=== PATIENT | female | born 2000 | race Two or more races ===

== ENCOUNTER 2023-12-15 12:07 | Emergency (ER) | payer MEDICAID, OTHER ==
[~2023-12-15] VITALS: Ht 160 cm; Wt 77.2 kg
[2023-12-15 13:16] LABS: Urine Bacteria MOD /hpf (None Seen); Urine Blood 2+ /uL (Negative); Urine Budding Yeast FEW /hpf (None Seen); Urine Clarity Turbid (Clear); Urine Color Light-Yellow (Yellow); Urine Mucus FEW (None Seen); Urine Protein, UAD Negative (Negative); Urine Specific Gravity 1.014 (1.001-1.035); Urine Urobilinogen Normal (Negative); Urine WBC 9 /hpf (0 - 5)
[2023-12-15] MEDS ORDERED: NITR-87 PO (13:36)
[2023-12-15 14:01] VITALS: BP 120/79; PULSE 63; RESP 18; TEMP 98.2; O2SAT 96
== END 2023-12-15 14:07 | disposition home or self-care (01) ==
LOC: ER 12:07
DX: O20.0 Threatened abortion (principal); R10.2 Pelvic and perineal pain; O23.41 Unspecified infection of urinary tract in pregnancy, first trimester; N39.0 Urinary tract infection, site not specified; Z3A.13 13 weeks gestation of pregnancy
CPT/HCPCS: 36415; 76801; 81001; 84702

== ENCOUNTER 2023-12-20 18:09 | Emergency (ER) | payer MEDICAID ==
[~2023-12-20] VITALS: Ht 160 cm; Wt 76.6 kg
[~2023-12-20 18:09] MED LIST: NITR-87 PO
[2023-12-20 19:43] LABS: Basophils # (auto) 0 10 ^3/uL (0-0.2); Basophils % (auto) 0.2 % (0.0-2.0); Eosinophils # (auto) 0.2 10 ^3/uL (0-0.8); Eosinophils % (auto) 1.8 % (0.0-7.0); Hematocrit 41.4 % (36.0-46.0); Hemoglobin 14.1 g/dL (12.2-16.2); Lymphocytes # (auto) 2.7 10 ^3/uL (0.4-5.4); Lymphocytes % (auto) 30.6 % (10.0-50.0); Mean Corpuscular Hemoglobin 32.3 pg (28.0-32.0); Mean Corpuscular Hgb Conc. 34.1 g/dL (32.0-36.0); Mean Corpuscular Volume 94.7 fL (80.0-100.0); Monocytes # (auto) 0.5 10 ^3/uL (0-1.3); Monocytes % (auto) 6.1 % (0.0-12.0); Neutrophils # (auto) 5.4 10 ^3/uL (1.6-8.6); Neutrophils % (auto) 61.3 % (37.0-80.0); Platelet Count (auto) 171 10^3/uL (140-450); Red Blood Cells 4.38 10^6/uL (4.0-5.20); Red Cell Distribution Width 12.9 % (11.8-14.3); White Blood Cell 8.7 10^3/uL (4.4-10.8)
[2023-12-20 19:56] LABS: Urine Bacteria None Seen /hpf (None Seen)
[2023-12-20 19:58] LABS: Chloride 108 mmol/L (98-107); Potassium 3.6 mmol/L (3.5-5.1); Sodium 138 mmol/L (136-145)
[2023-12-20 19:59] LABS: Anion Gap 9 (5-15); Carbon Dioxide 21 mmol/L (20-30)
[2023-12-20 20:04] LABS: BUN/Creatinine Ratio 12.3 (10.0-20.0); Blood Urea Nitrogen 7 mg/dL (9-23); Glucose 84 mg/dL (74-106)
[2023-12-20] MEDS: ACETAMINOPHEN 500 MG TAB PO ONE (20:05)
[2023-12-20] MEDS: SODIUM CHLORIDE 0.9% 1,000 ML IV ONE (20:05)
[2023-12-20 20:12] VITALS: BP 123/78; PULSE 61; RESP 17; TEMP 98
[2023-12-20 20:26] LABS: Urine Blood Negative /uL (Negative); Urine Clarity Turbid (Clear); Urine Color Light-Yellow (Yellow); Urine Protein, UAD Negative (Negative); Urine Specific Gravity 1.012 (1.001-1.035); Urine Urobilinogen Normal (Negative); Urine WBC 3 /hpf (0 - 5)
[2023-12-20] MEDS: cefTRIAXone 2GM/50ML D5W 50 ML IV ONE (20:26)
[2023-12-20] MEDS: METOCLOPRAMIDE HCL 5MG/ml INJ 2ml VIAL IV ONE (20:26)
[2023-12-20 20:40] VITALS: O2SAT 99
[2023-12-20] MEDS ORDERED: ACET-1304 PO (20:54)
[2023-12-20] MEDS ORDERED: METO-281 PO (20:54)
[2023-12-20] MEDS ORDERED: CEPH500T PO (20:54)
[2023-12-20] MEDS: cefTRIAXone 1GM/50ML D5W 50 ML IV ONE ×2 (22:00)
== END 2023-12-20 22:25 | disposition home or self-care (01) ==
LOC: ER 18:09
DX: O23.41 Unspecified infection of urinary tract in pregnancy, first trimester (principal); N39.0 Urinary tract infection, site not specified; Z3A.09 9 weeks gestation of pregnancy
CPT/HCPCS: 36415; 76775; 76801; 80048; 81001; 85025; 87040; 87086; 96361; 96365; 96375; 99285; J0696; J2765; J7030

== ENCOUNTER 2024-06-04 20:41 | Observation (INO) | payer MEDICAID ==
[~2024-06-04] VITALS: Ht 160 cm; Wt 74.8 kg
[~2024-06-04 20:41] MED LIST changes: +ACET-1304 PO; +CEPH500T PO; +METO-281 PO
[2024-06-04] MEDS ORDERED: LACTATED RINGER'S 1,000 ML IV SCH (21:45)
[2024-06-04] MEDS: TERBUTALINE SULFATE 1 MG/ML 1ML VIAL SC SCH (22:10)
[2024-06-04] MEDS: LACTATED RINGER'S 1,000 ML IV ONE (23:07)
--- NOTE | 2024-06-04 23:16 | DVH ---
LIMITED SURVEY CLINICAL HISTORY: LABOR COMPARISON: None TECHNIQUE: Grayscale imaging of the gravid pelvis is performed FINDINGS: Fetus is in cephalic position. Cervix can not be imaged due to shadowing from the head. Placenta is fundal. heart rate is 139 beats per minute Amniotic fluid index is 13.35 cm with deepest pocket = 5.1 cm. Cervical neck measures 3.5 cm in length with no evidence for funneling and no evidence for placenta p revia. IMPRESSION: 1. Limited survey of the gravid uterus with no evidence placenta previa. Fetus is in cephalic positio n 2. The placenta is fundal and unremarkable. heart rate is normal. Amniotic fluid index is 13.4 cm which is normal.
[2024-06-04] MEDS: NIFEdipine 10 MG CAP PO ONE (23:37)
[2024-06-05] MEDS ORDERED: NIFE10CA52 PO (00:05)
--- NOTE | 2024-06-05 15:47 | DVHDS2 ---
Physician Discharge Progress N Final Diagnosis: cramping Operations or Procedures: Operations or Procedures nst,sono Condition on Discharge: Good Disposition: Home Discharge Instructions: Diet: Regular Activity: Light activity Medications: na Follow Up Care: Specialist: 2d Discharge Statement: "Patient was advised to return to the ER or call 911 if any headaches, dizziness, shortness of breath, chest pain, abdominal pain, bleeding, fevers, or worsening of medical condition. Patient was counseled about treatment plan, medications, possible side effects, patientverbalized understanding. All questions were answered to the best of my ability. This discharge took greater then 30 minutes in planning, reviewing documentation, counseling the patient, and discussing with other team members." Visit Coding OBGYN Date of Service: Jun 04, 2024 Billing Provider: CLAUDIO PARRISH DO ALMOND BLANCHER HAND Common Visit Codes: 62888-RSL/OBS SAME DATE (MOD) ALMOND BLANCHER HAND Procedure Codes: 53459-31- NON-STRESS TEST CLAUDIO PARRISH DO Jun 05, 2024 15:47
== END 2024-06-05 00:30 | disposition home or self-care (01) ==
LOC: LDRP 20:41
PROVIDERS: ADMIT Obstetrics & Gynecology; ATTEND Obstetrics & Gynecology
DX: O60.00 Preterm labor without delivery, unspecified trimester (principal); O62.9 Abnormality of forces of labor, unspecified; Z3A.33 33 weeks gestation of pregnancy; Z79.899 Other long term (current) drug therapy; Z98.890 Other specified postprocedural states
CPT/HCPCS: 59025; 76815; 76817; 81002; 94760; 96360; 96361; 96372; G0378; J3105

== ENCOUNTER 2024-07-09 10:35 | Observation (INO) | payer MEDICAID ==
[~2024-07-09 10:35] MED LIST changes: +NIFE10CA52 PO
[2024-07-09 11:11] LABS: Basophils # (auto) 0 10 ^3/uL (0-0.2); Basophils % (auto) 0.5 % (0.0-2.0); Eosinophils # (auto) 0.1 10 ^3/uL (0-0.8); Eosinophils % (auto) 1.4 % (0.0-7.0); Hematocrit 38.8 % (36.0-46.0); Hemoglobin 13.1 g/dL (12.2-16.2); Lymphocytes # (auto) 2.1 10 ^3/uL (0.4-5.4); Mean Corpuscular Hemoglobin 31.6 pg (28.0-32.0); Mean Corpuscular Hgb Conc. 33.8 g/dL (32.0-36.0); Mean Corpuscular Volume 93.4 fL (80.0-100.0); Monocytes # (auto) 0.4 10 ^3/uL (0-1.3); Monocytes % (auto) 5.9 % (0.0-12.0); Neutrophils # (auto) 4.6 10 ^3/uL (1.6-8.6); Neutrophils % (auto) 63.2 % (37.0-80.0); Nucleated Red Blood Cells % 0.1 %; Platelet Count (auto) 128 10^3/uL (140-450); Red Blood Cells 4.15 10^6/uL (4.0-5.20); White Blood Cell 7.3 10^3/uL (4.4-10.8)
[2024-07-09 11:15] LABS: INR 0.86 (0.9-1.15); Partial Thromboplastin Time 25.1 SEC (24.5-34.5); Prothrombin Time 9.3 sec (9.3-11.8)
[2024-07-09 11:33] LABS: Alanine Aminotransferase 29 U/L (7-40); Anion Gap 9 (5-15); Calcium 10.1 mg/dL (8.7-10.4); Carbon Dioxide 22 mmol/L (20-31); Glucose 92 mg/dL (74-106); Potassium 4.1 mmol/L (3.5-5.1); Sodium 139 mmol/L (136-145); Total Protein 6.3 g/dL (5.7-8.2)
[2024-07-09 11:34] LABS: Aspartate Aminotransferase 25 U/L (13-40); Bilirubin, Total 0.6 mg/dL (0.2-1.0)
[2024-07-09 11:38] LABS: Alkaline Phosphatase 279 U/L (46-116); Blood Urea Nitrogen 9 mg/dL (9-23); Chloride 108 mmol/L (98-107)
[2024-07-09 11:49] LABS: Uric Acid 6.6 mg/dL (3.1-7.8)
[2024-07-09 12:02] LABS: Protein, Urine 20.2 mg/dL (1-14)
[2024-07-09 12:03] LABS: Urine Bacteria FEW /hpf (None Seen); Urine Blood TRACE /uL (Negative); Urine Clarity Turbid (Clear); Urine Color Light-Orange (Yellow); Urine Mucus FEW (None Seen); Urine Protein, UAD TRACE (Negative); Urine Specific Gravity 1.014 (1.001-1.035); Urine Squamous Epithelial Cell MOD /hpf (<5); Urine Urobilinogen Normal (Negative); Urine WBC 25 /HPF (0-5)
--- NOTE | 2024-07-09 12:03 | DVH ---
Procedure: US BIOPHYSICAL PROFILE 07/09/2024 11:00 AM Indication: PIH Comparison: None Technique: Sonogram of gravid uterus utilizing grayscale and color techniques. FINDINGS: Single living intrauterine gestation. Presentation: Cephalic Placenta: Fundal, no previa heart rate: 138 bpm ADILENE: 21.3 cm, DVP: 6.9 cm Maternal cervix: Not visualized Biophysical Profile: breathing score: 2 movement score: 2 tone: 2 Quantitative ADILENE score: 2 Total score: 8/8 IMPRESSION: 1. Single living as above. 2. Biophysical profile score: 8/8.
[2024-07-09 12:04] LABS: Creatinine, Urine 88.72 mg/dL (30.0-125.0); Urine Protein/Creatinine Ratio 0.23
--- NOTE | 2024-07-09 21:43 | DVHDS2 ---
Physician Discharge Progress N Final Diagnosis: rule out PIH Operations or Procedures: Operations or Procedures 23yo IUP@38.4wks, +FM, Denies LOF/VB/JORDAN/vision changes/RUQ pain. VSS, normotensive NST reactive FKC/Labor/PreE precautions reviewed f/u on saturday07/11/24 with [address] Johnson consulted, agrees with POC. Laboratory Tests Test 07/09/24 09:30 07/09/24 10:45 Range/Units Urine Color Light-orange Yellow Urine Clarity Turbid H Clear Urine pH 6.0 5.0-9.0 Urine Specific [place] 1.014 1.001-1.035 Urine Protein Trace H Negative Urine Ketones Negative Negative Urine Blood Trace H Negative /uL Urine Nitrite Negative Negative Urine Bilirubin Negative Negative Urine Urobilinogen Normal Negative mg/dL Urine Leukocyte Esterase 3+ Negative /uL Urine RBC 47 0 - 4 /hpf Urine Microscopic WBC 25 H 0-5 /HPF Urine Squamous Epithelial Cells Mod <5 /hpf Urine Bacteria Few H None Seen /hpf Urine Mucus Few None Seen Urine Creatinine 88.72 30.0-125.0 mg/dL Urine Protein/Creatinine Ratio 0.23 Urine Glucose Normal Normal mg/dL Urine Total Protein 20.2 H 1-14 mg/dL White Blood Count 7.3 4.4-10.8 10^3/uL Red Blood Count 4.15 4.0-5.20 10^6/uL Hemoglobin 13.1 12.2-16.2 g/dL Hematocrit 38.8 36.0-46.0 % Mean Corpuscular Volume 93.4 80.0-100.0 fL Mean Corpuscular Hemoglobin 31.6 28.0-32.0 pg Mean Corpuscular Hemoglobin Concent 33.8 32.0-36.0 g/dL Red Cell Distribution Width 14.0 11.8-14.3 % Platelet Count 128 L 140-450 10^3/uL Mean Platelet Volume 10.3 6.9-10.8 fL Neutrophils (%) (Auto) 63.2 37.0-80.0 % Lymphocytes (%) (Auto) 29.0 10.0-50.0 % Monocytes (%) (Auto) 5.9 0.0-12.0 % Eosinophils (%) (Auto) 1.4 0.0-7.0 % Basophils (%) (Auto) 0.5 0.0-2.0 % Neutrophils # (Auto) 4.6 1.6-8.6 10 ^3/uL Lymphocytes # (Auto) 2.1 0.4-5.4 10 ^3/uL Monocytes # (Auto) 0.4 0-1.3 10 ^3/uL Eosinophils # (Auto) 0.1 0-0.8 10 ^3/uL Basophils # (Auto) 0 0-0.2 10 ^3/uL Nucleated Red Blood Cells 0.1 % Prothrombin Time 9.3 9.3-11.8 sec Prothrombin Time INR 0.86 L 0.9-1.15 Activated Partial Thromboplast Time 25.1 24.5-34.5 SEC Sodium Level 139 136-145 mmol/L Potassium Level 4.1 3.5-5.1 mmol/L Chloride Level 108 H 98-107 mmol/L Carbon Dioxide Level 22 20-31 mmol/L Anion Gap 9 5-15 Blood Urea Nitrogen 9 9-23 mg/dL Creatinine 0.69 0.550-1.02 mg/dL Glomerular Filtration Rate Calc 125 >90 mL/min BUN/Creatinine Ratio 13.0 10.0-20.0 Serum Glucose 92 74-106 mg/dL Uric Acid 6.6 3.1-7.8 mg/dL Calcium Level 10.1 8.7-10.4 mg/dL Total Bilirubin 0.6 0.2-1.0 mg/dL Aspartate Amino Transferase (AST) 25 13-40 U/L Alanine Aminotransferase (ALT) 29 7-40 U/L Alkaline Phosphatase 279 H 46-116 U/L Total Protein 6.3 5.7-8.2 g/dL Albumin 4.0 3.2-4.8 g/dL Other Interventions Other Interventions [address] [address] Ph: [phone] DIAGNOSTIC IMAGING Diagnostic Imaging Report : [id number] Signed PATIENT: TOM MCCORMICKCT: [id number] UNIT: [id number] : 2000 LOC: [facility] ROOM / BED: TRIAGE2 / A AGE / SEX: 23 / F ADM STATUS: ADM IN SERVICE 1038 ORDERING PHYSICIAN: YOLANDA NÚÑEZ CNM PROCEDURE(s): BPP - BIOPHYSICAL PROFILE REASON: PIH ORDER NUMBER(s): [id number], ACCESSION NUMBER(s): [id number] Procedure: US BIOPHYSICAL PROFILE 07/09/2024 11:00 AM Indication: PIH Comparison: None Technique: Sonogram of gravid uterus utilizing grayscale and color techniques. FINDINGS: Single living intrauterine gestation. Presentation: Cephalic Placenta: Fundal, no previa heart rate: 138 bpm ADILENE: 21.3 cm, DVP: 6.9 cm Maternal cervix: Not visualized Biophysical Profile: breathing score: 2 movement score: 2 tone: 2 Quantitative ADILENE score: 2 Total score: 8/8 IMPRESSION: 1. Single living as above. 2. Biophysical profile score: 8/8. ATED BY: LONA REY MD DICTATED DATE/TIME: 07/09/24 1200 SIGNED BY: LONA REY MD SIGNED DATE/TIME: 07/09/24 1200 CC: Condition on Discharge: Stable Disposition: Home Discharge Instructions: Diet: Regular Activity: No Restrictions, As Tolerated Medications: see med list Follow Up Care: Specialist: f/u on saturday07/11/24 with 24 hour urine collection Discharge Statement: "Patient was advised to return to the ER or call 911 if any headaches, dizziness, shortness of breath, chest pain, abdominal pain, bleeding, fevers, or worsening of medical condition. Patient was counseled about treatment plan, medications, possible side effects, patientverbalized understanding. All questions were answered to the best of my ability. This discharge took greater then 30 minutes in planning, reviewing documentation, counseling the patient, and discussing with other team members." Visit Coding OBGYN Date of Service: Jul 09, 2024 Billing Provider: YOLANDA NÚÑEZ CNM PUBLIC RELATIONS ANALYST Common Visit Codes: [id number] OBS CARE (HIGH) PUBLIC RELATIONS ANALYST Procedure Codes: 17493-14- NON-STRESS TEST YOLANDA NÚÑEZ CNM Jul 09, 2024 21:43
== END 2024-07-09 12:28 | disposition home or self-care (01) ==
LOC: LDRP 10:35
PROVIDERS: ADMIT Obstetrics & Gynecology; ATTEND Obstetrics & Gynecology
DX: Z36.89 Encounter for other specified antenatal screening (principal); Z79.899 Other long term (current) drug therapy; Z86.2 Personal history of diseases of the blood and blood-forming organs and certain disorders involving the immune mechanism; Z3A.38 38 weeks gestation of pregnancy
CPT/HCPCS: 36415; 59025; 76819; 80053; 81001; 81002; 82570; 84156; 84550; 85025; 85610; 85730; 94760; G0378; 76818

== ENCOUNTER 2024-07-10 23:20 | Observation (INO) | payer MEDICAID ==
[~2024-07-10] VITALS: Ht 160 cm; Wt 91.6 kg
--- NOTE | 2024-07-11 00:29 | DVHDS2 ---
Physician Discharge Progress N Final Diagnosis: spotting/bloody show [place] varela contractions Operations or Procedures: Operations or Procedures S: 23yo IUP@38.4wks presents to OB triage with c/o vaginal bleeding, has a picture on her phone (looks like pink/red spotting with mucus). Reports having intercourse 2 days ago. +FM, Denies LOF/VB/JORDAN/vision changes/RUQ pain. PNC at [facility], currently being ruled out for PIH, [facility] to return with 24 hour urine collection. Pt has urine jug with her on ice in triage today. O: VSS, normotensive NST reactive UCs presents, but pt does not feel them A: 23yo IUP@38.4wks Spotting/bloody show [place] varela contractions P: D/C home FKC/Labor/PreE precautions reviewed f/u on saturday07/11/24 morning with [address] Johnson consulted, agrees with POC. Condition on Discharge: Stable Disposition: Home Discharge Instructions: Diet: Regular Activity: No Restrictions, As Tolerated Medications: see med list Follow Up Care: Specialist: f/u on saturday07/11/24 morning with 24 hour urine collection Discharge Statement: "Patient was advised to return to the ER or call 911 if any headaches, dizziness, shortness of breath, chest pain, abdominal pain, bleeding, fevers, or worsening of medical condition. Patient was counseled about treatment plan, medications, possible side effects, patientverbalized understanding. All questions were answered to the best of my ability. This discharge took greater then 30 minutes in planning, reviewing documentation, counseling the patient, and discussing with other team members." Visit Coding OBGYN Date of Service: Jul 11, 2024 Billing Provider: YOLANDA NÚÑEZ CNM GRAVEL WHEELER Common Visit Codes: [id number] OBS CARE (HIGH) YOLANDA NÚÑEZ CNM Jul 11, 2024 00:29
== END 2024-07-11 00:33 | disposition home or self-care (01) ==
LOC: LDRP 23:20
PROVIDERS: ADMIT Obstetrics & Gynecology; ATTEND Obstetrics & Gynecology
DX: O26.853 Spotting complicating pregnancy, third trimester (principal); O62.9 Abnormality of forces of labor, unspecified; Z98.890 Other specified postprocedural states; Z79.899 Other long term (current) drug therapy; Z3A.38 38 weeks gestation of pregnancy
CPT/HCPCS: 81002; 94760; G0378

== ENCOUNTER 2024-07-11 09:12 | Inpatient (IN) | payer MEDICAID ==
[~2024-07-11] VITALS: Ht 157.5 cm; Wt 91.6 kg
[2024-07-11 10:15] LABS: Urine Bacteria None Seen /hpf (None Seen)
--- NOTE | 2024-07-11 10:34 | DVH ---
CLINICAL HISTORY: -induced hypertension. COMPARISON: US BIOPHYSICAL PROFILE on DOS: 07/09/24 TECHNIQUE: biophysical profile was performed. Transabdominal sonographic images of the fetus we re obtained. FINDINGS: The fetus is in cephalic position. heart rate measures 136 BPM. Amniotic fluid index measures 15.6 cm. The placenta is i in position. BPP profile is an overall score of 8/8, with 2/2 points for breathing, with at least one episode of breathing over a 30 second duration during a 30 minute observation, 2/2 points for m ovements, with 3 or more discrete body or limb movements, 2/2 points for tone, with one or more episodes of extremity extension with return to flexion, or opening and closing of hand, and 2/ 2 points for amniotic fluid, with at least 1 pocket of amniotic fluid that measures 2 cm in 2 perpend icular planes. IMPRESSION: BPP score of 8/8.
[2024-07-11 10:35] LABS: Urine Blood 1+ /uL (Negative); Urine Clarity Turbid (Clear); Urine Color Light-Yellow (Yellow); Urine Mucus FEW (None Seen); Urine Protein, UAD Negative (Negative); Urine Specific Gravity 1.007 (1.001-1.035); Urine Squamous Epithelial Cell MOD /hpf (<5); Urine Urobilinogen Normal (Negative); Urine WBC 14 /HPF (0-5); Urine pH 5.5 (5.0-9.0)
[2024-07-11 10:47] LABS: Protein, Urine 8.5 mg/dL (1-14)
[2024-07-11 10:50] LABS: Urine Protein/Creatinine Ratio 0.12
[2024-07-11 10:53] LABS: Fern Testing Negative
[2024-07-11 11:01] LABS: Protein, Urine < 6.0 mg/dL (1-14)
[2024-07-11 11:13] LABS: 24 Hr. Total Protein, Urine 229.5 mg/24 Hr (<149.1)
[2024-07-11 12:28] LABS: Basophils # (auto) 0 10 ^3/uL (0-0.2); Basophils % (auto) 0.3 % (0.0-2.0); Eosinophils # (auto) 0.1 10 ^3/uL (0-0.8); Eosinophils % (auto) 2.1 % (0.0-7.0); Hemoglobin 12.6 g/dL (12.2-16.2); Lymphocytes # (auto) 2.1 10 ^3/uL (0.4-5.4); Mean Corpuscular Hemoglobin 32.4 pg (28.0-32.0); Mean Corpuscular Hgb Conc. 35.1 g/dL (32.0-36.0); Mean Corpuscular Volume 92.2 fL (80.0-100.0); Monocytes # (auto) 0.4 10 ^3/uL (0-1.3); Monocytes % (auto) 6.3 % (0.0-12.0); Neutrophils # (auto) 4.2 10 ^3/uL (1.6-8.6); Neutrophils % (auto) 61.3 % (37.0-80.0); Nucleated Red Blood Cells % 0.1 %; Platelet Count (auto) 114 10^3/uL (140-450); Red Blood Cells 3.91 10^6/uL (4.0-5.20); Red Cell Distribution Width 13.9 % (11.8-14.3); White Blood Cell 6.9 10^3/uL (4.4-10.8)
[2024-07-11 12:49] LABS: INR 0.91 (0.9-1.15); Partial Thromboplastin Time 25.4 SEC (24.5-34.5); Prothrombin Time 9.7 sec (9.3-11.8)
[2024-07-11 12:51] LABS: Alanine Aminotransferase 33 U/L (7-40); Albumin 3.9 g/dL (3.2-4.8); Anion Gap 10 (5-15); Aspartate Aminotransferase 25 U/L (13-40); BUN/Creatinine Ratio 10.3 (10.0-20.0); Bilirubin, Total 0.5 mg/dL (0.2-1.0); Calcium 10.4 mg/dL (8.7-10.4); Carbon Dioxide 21 mmol/L (20-31); Potassium 3.7 mmol/L (3.5-5.1); Sodium 140 mmol/L (136-145); Total Protein 6.4 g/dL (5.7-8.2); Uric Acid 6.8 mg/dL (3.1-7.8)
[2024-07-11 13:13] LABS: Alkaline Phosphatase 256 U/L (46-116); Blood Urea Nitrogen 7 mg/dL (9-23); Chloride 109 mmol/L (98-107); Glucose 107 mg/dL (74-106)
[2024-07-11] MEDS ORDERED: LIDOCAINE 2%HCL (LOCAL ANESTH.) INJ 20ML MDV IJ PRN (13:45)
[2024-07-11] MEDS ORDERED: NALBUPHINE HCL 10 MG/1ml INJECTION IV PRN (13:45)
--- NOTE | 2024-07-11 13:54 | DVHHP ---
ADMIT DATE: 07/11/2024 CHIEF COMPLAINT: Uterine contractions, elevated blood pressure. HISTORY OF PRESENT ILLNESS: The patient is a 23-year-old 1, para 0 with EDC of 07/19/2024, estimated gestational age of 38+ weeks, admitted for augmentation of labor. The patient was 1 cm. She progressed to 3 cm, 70%, -1. Her blood pressures were also noted to be elevated. Subsequently, a decision was made to proceed with augmentation of labor. PAST MEDICAL HISTORY: None. PAST SURGICAL HISTORY: None. SOCIAL HISTORY: None. FAMILY HISTORY: None. OBSTETRIC AND GYNECOLOGIC HISTORY: Primigravid. ALLERGIES: No known drug allergies. REVIEW OF SYSTEMS: Consistent with HPI. PHYSICAL EXAMINATION: VITAL SIGNS: Stable, afebrile. HEENT: Within normal limits. CARDIOVASCULAR: Regular rate and rhythm. LUNGS: Clear to auscultation. BREASTS: Symmetrical. No masses. ABDOMEN: Gravid. Positive heart. PELVIC: 3, 70%, -1. EXTREMITIES: No clubbing, cyanosis or edema. IMPRESSION: * Augmentation of labor. * Gestational hypertension. PLAN: We will give the patient epidural and start her on Pitocin. Informed consent obtained. Lona Johnson DO MZ/ARV TID: [id number] RECEIPT: [id number]
[2024-07-11] MEDS: PENICILLIN G POT 5MIL/D5 50ML 50 ML IV ONE (15:16)
[2024-07-11] MEDS: LACTATED RINGER'S 1,000 ML IV SCH (15:27)
[2024-07-11] MEDS: PHISODERM TOP SOLN 240ML BTL TOP PRN (15:43)
[2024-07-11] MEDS: LABETALOL HCL 200 MG TAB PO SCH (15:43)
[2024-07-11] MEDS: DERMOPLAST 60ML BOTTLE TOP PRN (15:43)
[2024-07-11] MEDS: WITCH HAZEL-GLYCERIN PAD TOP PRN (15:44)
[2024-07-11 16:02] LABS: Amphetamine Screen, Urine Neg (NEGATIVE); Barbiturate Scree,Urine Neg (NEGATIVE); Benzodiazephine Screen, Urine Neg (NEGATIVE); Cannabinoid Screen, Urine Neg (NEGATIVE); Cocaine Screen, Urine Neg (NEGATIVE); Opiate Scree,Urine Neg (NEGATIVE); Phencyclidine Screen, Urine Neg (NEGATIVE)
[2024-07-11] MEDS: LACT. RINGERS/OXYTOCIN 20UNITS 1,000 ML IV SCH (16:56)
[2024-07-11] MEDS ORDERED: ceFAZolin 2 GM/D5W50ml 50 ML IV ONE (18:15)
--- NOTE | 2024-07-11 18:36 | DVHPN2 ---
Chief Complaints Patient reports: No new complaints Nursing reports: No new complaints Objective Vitals Vital Signs Date Time Temp Pulse Resp B/P (MAP) Pulse Ox O2 Delivery O2 Flow Rate FiO2 07/11/24 16:43 91 140/81 Medications Current Medications Medications (Trade) Dose Ordered Sig/Lilly Route PRN Reason Start Time Stop Time Status Last Admin Benzocaine (Dermoplast) 1 applic PRN PRN TOP PERINEAL AREA DISCOMFORT 07/11/24 13:45 07/11/24 15:43 Hydralazine HCl (Apresoline Injection) 5 mg Q20MP PRN IV SBP>160 or DBP>105 07/11/24 18:00 Labetalol HCl (Normodyne Tablet) 200 mg Q12H PO 07/12/24 03:30 Lactated Ringer's 1,000 ml @ 125 mls/hr Q8H IV 07/11/24 13:45 07/11/24 15:27 Lidocaine HCl (Xylocaine) 20 ml ONCE PRN IJ PERINEAL AREA DISCOMFORT 07/11/24 13:45 Nalbuphine HCl (Nubain) 10 mg Q4HP PRN IV MODERATE PAIN (4-6 PAIN SCALE) 07/11/24 13:45 Ondansetron HCl (Zofran) 4 mg Q4HPRN PRN IV NAUSEA / VOMITING 07/11/24 16:45 Oxytocin 1,000 ml @ 6 ml/hr Q24H IV 07/11/24 15:45 07/11/24 16:56 Penicillin G Potassium 5852606 units/Dextrose 50 ml @ 100 mls/hr Q4H IV 07/11/24 19:00 Sodium Lauryl Sulfate (Phisoderm) 240 ml PRN PRN TOP PERINEAL AREA DISCOMFORT 07/11/24 13:45 07/11/24 15:43 Witch Dawn (Tucks) 1 pad PRN PRN TOP PERINEAL AREA DISCOMFORT 07/11/24 13:45 07/11/24 15:44 Others ve- exam unchanged Studies Laboratory Tests 07/11/24 12:06 Test 07/11/24 12:06 Range/Units Serum Glucose 107 H 74-106 mg/dL Ass/Plan Assessment iol Plan pt needs to get epidural supportive care start pitocin Visit Coding OBGYN Date of Service: Jul 11, 2024 Billing Provider: CLAUDIO PARRISH DO QUILL WORKER Common Visit Codes: [id number] INP/OBS CARE(HIGH) QUILL WORKER Procedure Codes: 35675-11- NON-STRESS TEST CLAUDIO PARRISH DO Jul 11, 2024 18:36
[2024-07-11] MEDS: PENICILLIN G POTASSIUM 2,500,000 UNITS in D5W 5% 50 ML IV SCH (19:09)
[2024-07-11] MEDS ORDERED: ePHEDrine SULFATE 50 MG/ML AMP IV ONE (19:45)
[2024-07-11] MEDS ORDERED: NALOXONE HCL 0.4 MG/ML VIAL IV ONE (19:45)
--- NOTE | 2024-07-11 22:25 | DVHPN2 ---
DRU CORLEY [facility] 07/11/24 2225: OB Labor Progress Note Date and Time Seen Date Seen: Jul 11, 2024 Time Seen: 19:20 Subjective Patient reports: No new complaints Monitoring Method Monitoring Method: External Heart Rate Heart Rate Baseline: 135 Heart Rate Variability: Moderate Presence of FHR Accelerations: Yes Presence of FHR Decelerations: No Changes in Trends of Patterns: No Are all 5 Components of the FH: Yes Contractions Contractions Frequency: Occasional (Q5-10min) Duration of Contraction: 60 Contractions Intensity: Mild Contractions Resting Tone: Relaxed Membranes Membranes: Intact Vaginal Exam Vag Exam Deferred: Yes Medications Medications - Pitocin: No Medication - Epidural: No Lab Results Lab Results Vital Signs Date Time Temp Pulse Resp B/P (MAP) Pulse Ox O2 Delivery O2 Flow Rate FiO2 07/11/24 16:43 91 140/81 Current Medications Medications (Trade) Dose Ordered Sig/Lilly Start Time Stop Time Status Last Admin Dose Admin Lactated Ringer's 1,000 ml @ 125 mls/hr Q8H 07/11/24 13:45 07/11/24 15:27 125 MLS/HR Nalbuphine HCl (Nubain) 10 mg Q4HP PRN 07/11/24 13:45 Witch Dawn (Tucks) 1 pad PRN PRN 07/11/24 13:45 07/11/24 19:09 1 PAD Sodium Lauryl Sulfate (Phisoderm) 240 ml PRN PRN 07/11/24 13:45 07/11/24 19:09 240 ML Benzocaine (Dermoplast) 1 applic PRN PRN 07/11/24 13:45 07/11/24 19:09 1 APPLIC Lidocaine HCl (Xylocaine) 20 ml ONCE PRN 07/11/24 13:45 Penicillin G Potassium 50 ml @ 100 mls/hr ONCE ONCE 07/11/24 15:00 07/11/24 15:29 DC 07/11/24 15:16 100 MLS/HR Penicillin G Potassium 1120855 units/Dextrose 50 ml @ 100 mls/hr Q4H 07/11/24 19:00 07/11/24 19:09 100 MLS/HR Labetalol HCl (Normodyne Tablet) 200 mg Q12HR 07/11/24 15:30 07/11/24 17:26 DC 07/11/24 15:43 200 MG Oxytocin 1,000 ml @ 6 ml/hr Q24H 07/11/24 15:45 07/11/24 16:56 6 ML/HR Oxytocin 500 ml @ 999 mls/hr Q31M ONCE 07/11/24 15:45 07/11/24 16:23 DC Oxytocin 500 ml @ 125 mls/hr Q4H ONCE 07/11/24 16:15 07/11/24 20:14 DC Ondansetron HCl (Zofran) 4 mg Q4HPRN PRN 07/11/24 16:45 Labetalol HCl (Normodyne Tablet) 200 mg Q12H 07/12/24 03:30 Hydralazine HCl (Apresoline Injection) 5 mg Q20MP PRN 07/11/24 18:00 Cefazolin Sodium/ Dextrose 50 ml @ 50 mls/hr ONCE ONCE 07/11/24 18:15 07/11/24 19:14 DC Naloxone HCl (Narcan) 0.2 mg PRN ONCE 07/11/24 19:45 07/11/24 19:55 DC Ephedrine Sulfate (ePHEDrine SULFATE) 10 mg PRN ONCE 07/11/24 19:45 07/11/24 19:55 DC Laboratory Tests Test 07/11/24 13:56 07/11/24 12:06 07/11/24 10:00 07/11/24 09:15 Range/Units Treponema pallidum Antibody Non-reactive Negative Hepatitis C Antibody Negative Negative White Blood Count 6.9 4.4-10.8 10^3/uL Red Blood Count 3.91 L 4.0-5.20 10^6/uL Hemoglobin 12.6 12.2-16.2 g/dL Hematocrit 36.0 36.0-46.0 % Mean Corpuscular Volume 92.2 80.0-100.0 fL Mean Corpuscular Hemoglobin 32.4 H 28.0-32.0 pg Mean Corpuscular Hemoglobin Concent 35.1 32.0-36.0 g/dL Red Cell Distribution Width 13.9 11.8-14.3 % Platelet Count 114 L 140-450 10^3/uL Mean Platelet Volume 9.9 6.9-10.8 fL Neutrophils (%) (Auto) 61.3 37.0-80.0 % Lymphocytes (%) (Auto) 30.0 10.0-50.0 % Monocytes (%) (Auto) 6.3 0.0-12.0 % Eosinophils (%) (Auto) 2.1 0.0-7.0 % Basophils (%) (Auto) 0.3 0.0-2.0 % Neutrophils # (Auto) 4.2 1.6-8.6 10 ^3/uL Lymphocytes # (Auto) 2.1 0.4-5.4 10 ^3/uL Monocytes # (Auto) 0.4 0-1.3 10 ^3/uL Eosinophils # (Auto) 0.1 0-0.8 10 ^3/uL Basophils # (Auto) 0 0-0.2 10 ^3/uL Nucleated Red Blood Cells 0.1 % Prothrombin Time 9.7 9.3-11.8 sec Prothrombin Time INR 0.91 0.9-1.15 Activated Partial Thromboplast Time 25.4 24.5-34.5 SEC Sodium Level 140 136-145 mmol/L Potassium Level 3.7 3.5-5.1 mmol/L Chloride Level 109 H 98-107 mmol/L Carbon Dioxide Level 21 20-31 mmol/L Anion Gap 10 5-15 Blood Urea Nitrogen 7 L 9-23 mg/dL Creatinine 0.68 0.550-1.02 mg/dL Glomerular Filtration Rate Calc 125 >90 mL/min BUN/Creatinine Ratio 10.3 10.0-20.0 Serum Glucose 107 H 74-106 mg/dL Uric Acid 6.8 3.1-7.8 mg/dL Calcium Level 10.4 8.7-10.4 mg/dL Total Bilirubin 0.5 0.2-1.0 mg/dL Aspartate Amino Transferase (AST) 25 13-40 U/L Alanine Aminotransferase (ALT) 33 7-40 U/L Alkaline Phosphatase 256 H 46-116 U/L Total Protein 6.4 5.7-8.2 g/dL Albumin 3.9 3.2-4.8 g/dL Amniotic Fluid Ferning Test Negative Placental [id number] Negative Urine Color Light-yellow Yellow Urine Clarity Turbid H Clear Urine pH 5.5 5.0-9.0 Urine Specific [place] 1.007 1.001-1.035 Urine Protein Negative Negative Urine Ketones Negative Negative Urine Blood 1+ H Negative /uL Urine Nitrite Negative Negative Urine Bilirubin Negative Negative Urine Urobilinogen Normal Negative mg/dL Urine Leukocyte Esterase 3+ Negative /uL Urine RBC 8 0 - 4 /hpf Urine Microscopic WBC 14 H 0-5 /HPF Urine Squamous Epithelial Cells Mod <5 /hpf Urine Bacteria None seen None Seen /hpf Urine Mucus Few None Seen Urine Creatinine 48.30 30.0-125.0 mg/dL Urine Protein/Creatinine Ratio 0.12 Urine Glucose Normal Normal mg/dL Urine Total Protein < 6.0 1-14 mg/dL Urine Opiates Screen Neg NEGATIVE Urine Fentanyl Screen Neg NEGATIVE Urine Barbiturates Screen Neg NEGATIVE Urine Phencyclidine Screen Neg NEGATIVE Urine Amphetamines Screen Neg NEGATIVE Urine Benzodiazepines Screen Neg NEGATIVE Urine Cocaine Screen Neg NEGATIVE Urine Cannabinoids Screen Neg NEGATIVE Test 07/11/24 08:30 Range/Units Urine Total Protein 24 Hour 229.5 <149.1 mg/24 Hr Assessment Assessment IUP at 38w 6d Pre eclampsia GBS Carrier Plan Plan Discussed labor analgesia /anesthesia with patient Start Oxytocin per protocol labor labor analgesia /anesthesia PRN Intrauterine resuscitation PRN Encourage and assist with frequent position change to facilitate labor Co-managing with Dr Johnson Plan discussed with: Patient, Spouse Visit Coding OBGYN Date of Service: Jul 11, 2024 Billing Provider: DRU CORLEY CNM ESTIMATOR PRINTING PLATE MAKING Common Visit Codes: [id number] INP/OBS CARE(HIGH) ESTIMATOR PRINTING PLATE MAKING Procedure Codes: 60776-09- NON-STRESS TEST SRAVAN ROMAN STUDENTMDW 07/12/24 0253: OB Labor Progress Note Date and Time Seen Date Seen: Jul 12, 2024 Time Seen: 02:00 Subjective Patient reports: No new complaints Objective Vital Signs VSS, see chart Monitoring Method Monitoring Method: Internal Heart Rate Heart Rate Baseline: 140 (perids of no tracing due to pt sitting up and vomiting) Heart Rate Variability: Moderate Presence of FHR Decelerations: No Contractions Contractions Frequency: Occasional (q 2-4 min) Duration of Contraction: 60 Contractions Intensity: Mild Contractions Resting Tone: Relaxed Membranes Membranes: Ruptured Vaginal Exam Vag Exam Deferred: No Vaginal Exam Dilation: 4 Vaginal Exam Effacement: 90 Vaginal Exam Station: -2 Vaginal Exam Presentation: VTX Vaginal Exam Show: Small Medications Medications - Pitocin: Yes (2 munits) Medication - Epidural: Yes Plan Plan discussed with: Patient, Other (family) DRU CORLEY CNM Jul 11, 2024 22:25 SRAVAN ROMANSDW Jul 12, 2024 02:53
--- NOTE | 2024-07-11 22:37 | DVHPN2 ---
OB Labor Progress Note Date and Time Seen Date Seen: Jul 11, 2024 Time Seen: 21:40 Subjective Patient reports: No new complaints Monitoring Method Monitoring Method: External Heart Rate Heart Rate Baseline: 145 Heart Rate Variability: Moderate Presence of FHR Accelerations: Yes Presence of FHR Decelerations: No Are all 5 Components of the FH: Yes Contractions Contractions Frequency: Other (2-3 in 10minutes) Contractions Intensity: Mild Contractions Resting Tone: Relaxed Vaginal Exam Vag Exam Deferred: No Vaginal Exam Dilation: 4 Vaginal Exam Effacement: 80 Vaginal Exam Station: -2 Vaginal Exam Presentation: VTX (VE by RN.) Medications Medications - Pitocin: Yes Medication - Epidural: Yes Lab Results Lab Results Vital Signs Date Time Temp Pulse Resp B/P (MAP) Pulse Ox O2 Delivery O2 Flow Rate FiO2 07/12/24 03:15 90 126/73 Current Medications Medications (Trade) Dose Ordered Sig/Lilly Start Time Stop Time Status Last Admin Dose Admin Lactated Ringer's 1,000 ml @ 125 mls/hr Q8H 07/11/24 13:45 07/12/24 02:46 125 MLS/HR Nalbuphine HCl (Nubain) 10 mg Q4HP PRN 07/11/24 13:45 Witch Dawn (Tucks) 1 pad PRN PRN 07/11/24 13:45 07/11/24 19:09 1 PAD Sodium Lauryl Sulfate (Phisoderm) 240 ml PRN PRN 07/11/24 13:45 07/11/24 19:09 240 ML Benzocaine (Dermoplast) 1 applic PRN PRN 07/11/24 13:45 07/11/24 19:09 1 APPLIC Lidocaine HCl (Xylocaine) 20 ml ONCE PRN 07/11/24 13:45 Penicillin G Potassium 50 ml @ 100 mls/hr ONCE ONCE 07/11/24 15:00 07/11/24 15:29 DC 07/11/24 15:16 100 MLS/HR Penicillin G Potassium 8293088 units/Dextrose 50 ml @ 100 mls/hr Q4H 07/11/24 19:00 07/12/24 03:15 100 MLS/HR Labetalol HCl (Normodyne Tablet) 200 mg Q12HR 07/11/24 15:30 07/11/24 17:26 DC 07/11/24 15:43 200 MG Oxytocin 1,000 ml @ 6 ml/hr Q24H 07/11/24 15:45 07/11/24 16:56 6 ML/HR Oxytocin 500 ml @ 999 mls/hr Q31M ONCE 07/11/24 15:45 07/11/24 16:23 DC Oxytocin 500 ml @ 125 mls/hr Q4H ONCE 07/11/24 16:15 07/11/24 20:14 DC Ondansetron HCl (Zofran) 4 mg Q4HPRN PRN 07/11/24 16:45 07/11/24 23:41 4 MG Labetalol HCl (Normodyne Tablet) 200 mg Q12H 07/12/24 03:30 07/12/24 03:15 200 MG Hydralazine HCl (Apresoline Injection) 5 mg Q20MP PRN 07/11/24 18:00 Cefazolin Sodium/ Dextrose 50 ml @ 50 mls/hr ONCE ONCE 07/11/24 18:15 07/11/24 19:14 DC Naloxone HCl (Narcan) 0.2 mg PRN ONCE 07/11/24 19:45 07/11/24 19:55 DC Ephedrine Sulfate (ePHEDrine SULFATE) 10 mg PRN ONCE 07/11/24 19:45 07/11/24 19:55 DC Laboratory Tests Test 07/11/24 13:56 07/11/24 12:06 07/11/24 10:00 07/11/24 09:15 Range/Units Treponema pallidum Antibody Non-reactive Negative Hepatitis C Antibody Negative Negative White Blood Count 6.9 4.4-10.8 10^3/uL Red Blood Count 3.91 L 4.0-5.20 10^6/uL Hemoglobin 12.6 12.2-16.2 g/dL Hematocrit 36.0 36.0-46.0 % Mean Corpuscular Volume 92.2 80.0-100.0 fL Mean Corpuscular Hemoglobin 32.4 H 28.0-32.0 pg Mean Corpuscular Hemoglobin Concent 35.1 32.0-36.0 g/dL Red Cell Distribution Width 13.9 11.8-14.3 % Platelet Count 114 L 140-450 10^3/uL Mean Platelet Volume 9.9 6.9-10.8 fL Neutrophils (%) (Auto) 61.3 37.0-80.0 % Lymphocytes (%) (Auto) 30.0 10.0-50.0 % Monocytes (%) (Auto) 6.3 0.0-12.0 % Eosinophils (%) (Auto) 2.1 0.0-7.0 % Basophils (%) (Auto) 0.3 0.0-2.0 % Neutrophils # (Auto) 4.2 1.6-8.6 10 ^3/uL Lymphocytes # (Auto) 2.1 0.4-5.4 10 ^3/uL Monocytes # (Auto) 0.4 0-1.3 10 ^3/uL Eosinophils # (Auto) 0.1 0-0.8 10 ^3/uL Basophils # (Auto) 0 0-0.2 10 ^3/uL Nucleated Red Blood Cells 0.1 % Prothrombin Time 9.7 9.3-11.8 sec Prothrombin Time INR 0.91 0.9-1.15 Activated Partial Thromboplast Time 25.4 24.5-34.5 SEC Sodium Level 140 136-145 mmol/L Potassium Level 3.7 3.5-5.1 mmol/L Chloride Level 109 H 98-107 mmol/L Carbon Dioxide Level 21 20-31 mmol/L Anion Gap 10 5-15 Blood Urea Nitrogen 7 L 9-23 mg/dL Creatinine 0.68 0.550-1.02 mg/dL Glomerular Filtration Rate Calc 125 >90 mL/min BUN/Creatinine Ratio 10.3 10.0-20.0 Serum Glucose 107 H 74-106 mg/dL Uric Acid 6.8 3.1-7.8 mg/dL Calcium Level 10.4 8.7-10.4 mg/dL Total Bilirubin 0.5 0.2-1.0 mg/dL Aspartate Amino Transferase (AST) 25 13-40 U/L Alanine Aminotransferase (ALT) 33 7-40 U/L Alkaline Phosphatase 256 H 46-116 U/L Total Protein 6.4 5.7-8.2 g/dL Albumin 3.9 3.2-4.8 g/dL Amniotic Fluid Ferning Test Negative Placental Prhzi-0-Dtbebtqehhofj Negative Urine Color Light-yellow Yellow Urine Clarity Turbid H Clear Urine pH 5.5 5.0-9.0 Urine Specific [place] 1.007 1.001-1.035 Urine Protein Negative Negative Urine Ketones Negative Negative Urine Blood 1+ H Negative /uL Urine Nitrite Negative Negative Urine Bilirubin Negative Negative Urine Urobilinogen Normal Negative mg/dL Urine Leukocyte Esterase 3+ Negative /uL Urine RBC 8 0 - 4 /hpf Urine Microscopic WBC 14 H 0-5 /HPF Urine Squamous Epithelial Cells Mod <5 /hpf Urine Bacteria None seen None Seen /hpf Urine Mucus Few None Seen Urine Creatinine 48.30 30.0-125.0 mg/dL Urine Protein/Creatinine Ratio 0.12 Urine Glucose Normal Normal mg/dL Urine Total Protein < 6.0 1-14 mg/dL Urine Opiates Screen Neg NEGATIVE Urine Fentanyl Screen Neg NEGATIVE Urine Barbiturates Screen Neg NEGATIVE Urine Phencyclidine Screen Neg NEGATIVE Urine Amphetamines Screen Neg NEGATIVE Urine Benzodiazepines Screen Neg NEGATIVE Urine Cocaine Screen Neg NEGATIVE Urine Cannabinoids Screen Neg NEGATIVE Test 07/11/24 08:30 Range/Units Urine Total Protein 24 Hour 229.5 <149.1 mg/24 Hr Assessment Assessment IUP at 38w 6d Pre-Eclampsia GBS Carrier Plan Plan Continue current management Encourage and assist with frequent position change to facilitate labor Encourage calm environment Supportive care Anticipate Co-managing with Dr Johnson Plan discussed with: Patient, Spouse Visit Coding OBGYN Date of Service: Jul 11, 2024 Billing Provider: DRU CORLEY CNM FOUNDRY WORKER APPRENTICE Common Visit Codes: [id number] INP/OBS CARE(HIGH) FOUNDRY WORKER APPRENTICE Procedure Codes: 38294-44- NON-STRESS TEST DRU CORLEY CNM Jul 11, 2024 22:37
[2024-07-11] MEDS: ONDANSETRON HCL 4 MG/2 ML VIAL IV PRN (23:41)
--- NOTE | 2024-07-12 02:46 | DVHPN2 ---
NAEEMM Labor Progress Note Date and Time Seen Date Seen: Jul 12, 2024 Time Seen: 02:15 Subjective Patient reports: No new complaints Objective Vital Signs VSS, see chart Monitoring Method Monitoring Method: External Heart Rate Heart Rate Baseline: 140 Heart Rate Variability: Moderate Presence of FHR Accelerations: Yes Presence of FHR Decelerations: No (periods of no tracing due to pt sitting up and vomiting) Are all 5 Components of the FH: Yes Contractions Contractions Frequency: Occasional (q 2-4 min) Duration of Contraction: 60 Contractions Intensity: Moderate Contractions Resting Tone: Relaxed Membranes Membranes: Ruptured Amniotic Fluid Color: Clear Vaginal Exam Vag Exam Deferred: No Vaginal Exam Dilation: 4 Vaginal Exam Effacement: 90 Vaginal Exam Station: -2 Vaginal Exam Presentation: VTX Vaginal Exam Show: Small Medications Medications - Pitocin: Yes Medication - Epidural: Yes Medication - Other Oxytocin infusing at 2 mU Lab Results Lab Results Vital Signs Date Time Temp Pulse Resp B/P (MAP) Pulse Ox O2 Delivery O2 Flow Rate FiO2 07/12/24 04:22 82 139/85 Current Medications Medications (Trade) Dose Ordered Sig/Lilly Start Time Stop Time Status Last Admin Dose Admin Lactated Ringer's 1,000 ml @ 125 mls/hr Q8H 07/11/24 13:45 07/12/24 02:46 125 MLS/HR Nalbuphine HCl (Nubain) 10 mg Q4HP PRN 07/11/24 13:45 Witch Dawn (Tucks) 1 pad PRN PRN 07/11/24 13:45 07/11/24 19:09 1 PAD Sodium Lauryl Sulfate (Phisoderm) 240 ml PRN PRN 07/11/24 13:45 07/11/24 19:09 240 ML Benzocaine (Dermoplast) 1 applic PRN PRN 07/11/24 13:45 07/11/24 19:09 1 APPLIC Lidocaine HCl (Xylocaine) 20 ml ONCE PRN 07/11/24 13:45 Penicillin G Potassium 50 ml @ 100 mls/hr ONCE ONCE 07/11/24 15:00 07/11/24 15:29 DC 07/11/24 15:16 100 MLS/HR Penicillin G Potassium 0892628 units/Dextrose 50 ml @ 100 mls/hr Q4H 07/11/24 19:00 07/12/24 07:00 100 MLS/HR Labetalol HCl (Normodyne Tablet) 200 mg Q12HR 07/11/24 15:30 07/11/24 17:26 DC 07/11/24 15:43 200 MG Oxytocin 1,000 ml @ 6 ml/hr Q24H 07/11/24 15:45 07/11/24 16:56 6 ML/HR Oxytocin 500 ml @ 999 mls/hr Q31M ONCE 07/11/24 15:45 07/11/24 16:23 DC Oxytocin 500 ml @ 125 mls/hr Q4H ONCE 07/11/24 16:15 07/11/24 20:14 DC Ondansetron HCl (Zofran) 4 mg Q4HPRN PRN 07/11/24 16:45 07/12/24 06:59 4 MG Labetalol HCl (Normodyne Tablet) 200 mg Q12H 07/12/24 03:30 07/12/24 03:15 200 MG Hydralazine HCl (Apresoline Injection) 5 mg Q20MP PRN 07/11/24 18:00 Cefazolin Sodium/ Dextrose 50 ml @ 50 mls/hr ONCE ONCE 07/11/24 18:15 07/11/24 19:14 DC Naloxone HCl (Narcan) 0.2 mg PRN ONCE 07/11/24 19:45 07/11/24 19:55 DC Ephedrine Sulfate (ePHEDrine SULFATE) 10 mg PRN ONCE 07/11/24 19:45 07/11/24 19:55 DC Lactated Ringer's 1,000 ml @ 75 mls/hr [id number] 07/12/24 06:15 Magnesium Sulfate 1,000 ml @ 50 mls/hr Q20H 07/12/24 06:15 Magnesium Sulfate 100 ml @ 300 mls/hr ONCE ONCE 07/12/24 06:15 07/12/24 06:34 DC Laboratory Tests Test 07/11/24 13:56 07/11/24 12:06 07/11/24 10:00 07/11/24 09:15 Range/Units Treponema pallidum Antibody Non-reactive Negative Hepatitis C Antibody Negative Negative White Blood Count 6.9 4.4-10.8 10^3/uL Red Blood Count 3.91 L 4.0-5.20 10^6/uL Hemoglobin 12.6 12.2-16.2 g/dL Hematocrit 36.0 36.0-46.0 % Mean Corpuscular Volume 92.2 80.0-100.0 fL Mean Corpuscular Hemoglobin 32.4 H 28.0-32.0 pg Mean Corpuscular Hemoglobin Concent 35.1 32.0-36.0 g/dL Red Cell Distribution Width 13.9 11.8-14.3 % Platelet Count 114 L 140-450 10^3/uL Mean Platelet Volume 9.9 6.9-10.8 fL Neutrophils (%) (Auto) 61.3 37.0-80.0 % Lymphocytes (%) (Auto) 30.0 10.0-50.0 % Monocytes (%) (Auto) 6.3 0.0-12.0 % Eosinophils (%) (Auto) 2.1 0.0-7.0 % Basophils (%) (Auto) 0.3 0.0-2.0 % Neutrophils # (Auto) 4.2 1.6-8.6 10 ^3/uL Lymphocytes # (Auto) 2.1 0.4-5.4 10 ^3/uL Monocytes # (Auto) 0.4 0-1.3 10 ^3/uL Eosinophils # (Auto) 0.1 0-0.8 10 ^3/uL Basophils # (Auto) 0 0-0.2 10 ^3/uL Nucleated Red Blood Cells 0.1 % Prothrombin Time 9.7 9.3-11.8 sec Prothrombin Time INR 0.91 0.9-1.15 Activated Partial Thromboplast Time 25.4 24.5-34.5 SEC Sodium Level 140 136-145 mmol/L Potassium Level 3.7 3.5-5.1 mmol/L Chloride Level 109 H 98-107 mmol/L Carbon Dioxide Level 21 20-31 mmol/L Anion Gap 10 5-15 Blood Urea Nitrogen 7 L 9-23 mg/dL Creatinine 0.68 0.550-1.02 mg/dL Glomerular Filtration Rate Calc 125 >90 mL/min BUN/Creatinine Ratio 10.3 10.0-20.0 Serum Glucose 107 H 74-106 mg/dL Uric Acid 6.8 3.1-7.8 mg/dL Calcium Level 10.4 8.7-10.4 mg/dL Total Bilirubin 0.5 0.2-1.0 mg/dL Aspartate Amino Transferase (AST) 25 13-40 U/L Alanine Aminotransferase (ALT) 33 7-40 U/L Alkaline Phosphatase 256 H 46-116 U/L Total Protein 6.4 5.7-8.2 g/dL Albumin 3.9 3.2-4.8 g/dL Amniotic Fluid Ferning Test Negative Placental Qctxg-1-Djpkzesfidbqx Negative Urine Color Light-yellow Yellow Urine Clarity Turbid H Clear Urine pH 5.5 5.0-9.0 Urine Specific [place] 1.007 1.001-1.035 Urine Protein Negative Negative Urine Ketones Negative Negative Urine Blood 1+ H Negative /uL Urine Nitrite Negative Negative Urine Bilirubin Negative Negative Urine Urobilinogen Normal Negative mg/dL Urine Leukocyte Esterase 3+ Negative /uL Urine RBC 8 0 - 4 /hpf Urine Microscopic WBC 14 H 0-5 /HPF Urine Squamous Epithelial Cells Mod <5 /hpf Urine Bacteria None seen None Seen /hpf Urine Mucus Few None Seen Urine Creatinine 48.30 30.0-125.0 mg/dL Urine Protein/Creatinine Ratio 0.12 Urine Glucose Normal Normal mg/dL Urine Total Protein < 6.0 1-14 mg/dL Urine Opiates Screen Neg NEGATIVE Urine Fentanyl Screen Neg NEGATIVE Urine Barbiturates Screen Neg NEGATIVE Urine Phencyclidine Screen Neg NEGATIVE Urine Amphetamines Screen Neg NEGATIVE Urine Benzodiazepines Screen Neg NEGATIVE Urine Cocaine Screen Neg NEGATIVE Urine Cannabinoids Screen Neg NEGATIVE Test 07/11/24 08:30 Range/Units Urine Total Protein 24 Hour 229.5 <149.1 mg/24 Hr Assessment Assessment 23 yo IUP at 39.0wks Pre-Eclampsia Category I tracing GBS positive Plan Plan IUPC placed for better assessment of UCs Titrate Pitocin per protocol Continuous monitoring IV PCN for GBS per protocol Frequent position changes in bed with peanut ball encouraged Limit SVE unless necessary Intrauterine resuscitation PRN Anticipate CNM co-managing with Dr Johnson Plan discussed with: Patient, Other (family) Visit Coding OBGYN Date of Service: Jul 12, 2024 Billing Provider: DRU CORLEY CNM FARM SUPERVISOR Common Visit Codes: [id number] INP/OBS CARE(HIGH) FARM SUPERVISOR Procedure Codes: 58895-73- NON-STRESS TEST ROMANSRAVAN DILLON STUDENTMDW Jul 12, 2024 02:46
[2024-07-12] MEDS: LABETALOL HCL 200 MG TAB PO SCH (03:15)
[2024-07-12] MEDS ORDERED: DEXTROSE IV ONE (06:00)
[2024-07-12] MEDS ORDERED: LACTATED RINGERS IV ONE (06:00)
--- NOTE | 2024-07-12 06:12 | DVHPN2 ---
CNM Labor Progress Note Date and Time Seen Date Seen: Jul 12, 2024 Time Seen: 05:30 Subjective Patient reports: No new complaints Subjective Comment Pt resting comfortably in bed Objective Vital Signs VSS, see chart Monitoring Method Monitoring Method: Internal Heart Rate Heart Rate Baseline: 140 Heart Rate Variability: Minimal Presence of FHR Accelerations: No Presence of FHR Decelerations: No Are all 5 Components of the FH: No If NO Corrective Measures Comp: Postition changes, IV bolus, and oxygen Contractions Contractions Frequency: Other (q 2 min) Duration of Contraction: 60 Contractions Intensity: Moderate Contractions Resting Tone: Relaxed If NO What Corrective Measures: Membranes Membranes: Ruptured Amniotic Fluid Color: Clear Vaginal Exam Vag Exam Deferred: No Vaginal Exam Dilation: 7 Vaginal Exam Effacement: 90 Vaginal Exam Station: 0 Vaginal Exam Presentation: VTX Vaginal Exam Show: Moderate Medications Medications - Pitocin: Yes Medication - Epidural: Yes Medication - Other Oxytocin infusing at 6 mU Lab Results Lab Results Vital Signs Date Time Temp Pulse Resp B/P (MAP) Pulse Ox O2 Delivery O2 Flow Rate FiO2 07/12/24 04:22 82 139/85 Current Medications Medications (Trade) Dose Ordered Sig/Lilly Start Time Stop Time Status Last Admin Dose Admin Lactated Ringer's 1,000 ml @ 125 mls/hr Q8H 07/11/24 13:45 07/12/24 02:46 125 MLS/HR Nalbuphine HCl (Nubain) 10 mg Q4HP PRN 07/11/24 13:45 Witch Dawn (Tucks) 1 pad PRN PRN 07/11/24 13:45 07/11/24 19:09 1 PAD Sodium Lauryl Sulfate (Phisoderm) 240 ml PRN PRN 07/11/24 13:45 07/11/24 19:09 240 ML Benzocaine (Dermoplast) 1 applic PRN PRN 07/11/24 13:45 07/11/24 19:09 1 APPLIC Lidocaine HCl (Xylocaine) 20 ml ONCE PRN 07/11/24 13:45 Penicillin G Potassium 50 ml @ 100 mls/hr ONCE ONCE 07/11/24 15:00 07/11/24 15:29 DC 07/11/24 15:16 100 MLS/HR Penicillin G Potassium 1180702 units/Dextrose 50 ml @ 100 mls/hr Q4H 07/11/24 19:00 07/12/24 07:00 100 MLS/HR Labetalol HCl (Normodyne Tablet) 200 mg Q12HR 07/11/24 15:30 07/11/24 17:26 DC 07/11/24 15:43 200 MG Oxytocin 1,000 ml @ 6 ml/hr Q24H 07/11/24 15:45 07/11/24 16:56 6 ML/HR Oxytocin 500 ml @ 999 mls/hr Q31M ONCE 07/11/24 15:45 07/11/24 16:23 DC Oxytocin 500 ml @ 125 mls/hr Q4H ONCE 07/11/24 16:15 07/11/24 20:14 DC Ondansetron HCl (Zofran) 4 mg Q4HPRN PRN 07/11/24 16:45 07/12/24 06:59 4 MG Labetalol HCl (Normodyne Tablet) 200 mg Q12H 07/12/24 03:30 07/12/24 03:15 200 MG Hydralazine HCl (Apresoline Injection) 5 mg Q20MP PRN 07/11/24 18:00 Cefazolin Sodium/ Dextrose 50 ml @ 50 mls/hr ONCE ONCE 07/11/24 18:15 07/11/24 19:14 DC Naloxone HCl (Narcan) 0.2 mg PRN ONCE 07/11/24 19:45 07/11/24 19:55 DC Ephedrine Sulfate (ePHEDrine SULFATE) 10 mg PRN ONCE 07/11/24 19:45 07/11/24 19:55 DC Lactated Ringer's 1,000 ml @ 75 mls/hr [id number] 07/12/24 06:15 Magnesium Sulfate 1,000 ml @ 50 mls/hr Q20H 07/12/24 06:15 Magnesium Sulfate 100 ml @ 300 mls/hr ONCE ONCE 07/12/24 06:15 07/12/24 06:34 DC Laboratory Tests Test 07/11/24 13:56 07/11/24 12:06 07/11/24 10:00 07/11/24 09:15 Range/Units Treponema pallidum Antibody Non-reactive Negative Hepatitis C Antibody Negative Negative White Blood Count 6.9 4.4-10.8 10^3/uL Red Blood Count 3.91 L 4.0-5.20 10^6/uL Hemoglobin 12.6 12.2-16.2 g/dL Hematocrit 36.0 36.0-46.0 % Mean Corpuscular Volume 92.2 80.0-100.0 fL Mean Corpuscular Hemoglobin 32.4 H 28.0-32.0 pg Mean Corpuscular Hemoglobin Concent 35.1 32.0-36.0 g/dL Red Cell Distribution Width 13.9 11.8-14.3 % Platelet Count 114 L 140-450 10^3/uL Mean Platelet Volume 9.9 6.9-10.8 fL Neutrophils (%) (Auto) 61.3 37.0-80.0 % Lymphocytes (%) (Auto) 30.0 10.0-50.0 % Monocytes (%) (Auto) 6.3 0.0-12.0 % Eosinophils (%) (Auto) 2.1 0.0-7.0 % Basophils (%) (Auto) 0.3 0.0-2.0 % Neutrophils # (Auto) 4.2 1.6-8.6 10 ^3/uL Lymphocytes # (Auto) 2.1 0.4-5.4 10 ^3/uL Monocytes # (Auto) 0.4 0-1.3 10 ^3/uL Eosinophils # (Auto) 0.1 0-0.8 10 ^3/uL Basophils # (Auto) 0 0-0.2 10 ^3/uL Nucleated Red Blood Cells 0.1 % Prothrombin Time 9.7 9.3-11.8 sec Prothrombin Time INR 0.91 0.9-1.15 Activated Partial Thromboplast Time 25.4 24.5-34.5 SEC Sodium Level 140 136-145 mmol/L Potassium Level 3.7 3.5-5.1 mmol/L Chloride Level 109 H 98-107 mmol/L Carbon Dioxide Level 21 20-31 mmol/L Anion Gap 10 5-15 Blood Urea Nitrogen 7 L 9-23 mg/dL Creatinine 0.68 0.550-1.02 mg/dL Glomerular Filtration Rate Calc 125 >90 mL/min BUN/Creatinine Ratio 10.3 10.0-20.0 Serum Glucose 107 H 74-106 mg/dL Uric Acid 6.8 3.1-7.8 mg/dL Calcium Level 10.4 8.7-10.4 mg/dL Total Bilirubin 0.5 0.2-1.0 mg/dL Aspartate Amino Transferase (AST) 25 13-40 U/L Alanine Aminotransferase (ALT) 33 7-40 U/L Alkaline Phosphatase 256 H 46-116 U/L Total Protein 6.4 5.7-8.2 g/dL Albumin 3.9 3.2-4.8 g/dL Amniotic Fluid Ferning Test Negative Placental Sghdc-4-Gthjiqjmskasm Negative Urine Color Light-yellow Yellow Urine Clarity Turbid H Clear Urine pH 5.5 5.0-9.0 Urine Specific [place] 1.007 1.001-1.035 Urine Protein Negative Negative Urine Ketones Negative Negative Urine Blood 1+ H Negative /uL Urine Nitrite Negative Negative Urine Bilirubin Negative Negative Urine Urobilinogen Normal Negative mg/dL Urine Leukocyte Esterase 3+ Negative /uL Urine RBC 8 0 - 4 /hpf Urine Microscopic WBC 14 H 0-5 /HPF Urine Squamous Epithelial Cells Mod <5 /hpf Urine Bacteria None seen None Seen /hpf Urine Mucus Few None Seen Urine Creatinine 48.30 30.0-125.0 mg/dL Urine Protein/Creatinine Ratio 0.12 Urine Glucose Normal Normal mg/dL Urine Total Protein < 6.0 1-14 mg/dL Urine Opiates Screen Neg NEGATIVE Urine Fentanyl Screen Neg NEGATIVE Urine Barbiturates Screen Neg NEGATIVE Urine Phencyclidine Screen Neg NEGATIVE Urine Amphetamines Screen Neg NEGATIVE Urine Benzodiazepines Screen Neg NEGATIVE Urine Cocaine Screen Neg NEGATIVE Urine Cannabinoids Screen Neg NEGATIVE Test 07/11/24 08:30 Range/Units Urine Total Protein 24 Hour 229.5 <149.1 mg/24 Hr Consulting with Regarding Dr Johnson notified of FHT variability and interventions thus far. Repositioning, IV bolus, oxygen, and SVE labor status reported. recommendation: continue to observe Assessment Assessment 23 yo IUP@39.0wks Pre-Eclampsia Category II tracing GBS positive Plan Plan Continuous monitoring IV PCN GBS prophylaxis per protocol Frequent position changes in bed with peanut ball encouraged Limit SVE unless necessary Intrauterine resuscitation PRN Anticipate CNM co-managing with Dr Johnson. Plan discussed with: Patient, Other (family) Visit Coding OBGYN Date of Service: Jul 12, 2024 Billing Provider: DRU CORLEY CNM THERAPEUTIC MENTOR Common Visit Codes: [id number] INP/OBS CARE(HIGH) THERAPEUTIC MENTOR Procedure Codes: 40037-57- NON-STRESS TEST SRAVAN ROMAN STUDENTMDW Jul 12, 2024 06:12
[2024-07-12] MEDS ORDERED: LACTATED RINGER'S 1,000 ML IV SCH (06:15)
[2024-07-12] MEDS: ROPIVACAINE HCL 200 ML ONE ×2 (07:02→09:36)
[2024-07-12] MEDS: MAGNESIUM SULFATE 100 ML IV ONE (08:17)
--- NOTE | 2024-07-12 08:25 | DVHPN2 ---
Chief Complaints Patient reports: No new complaints Nursing reports: No new complaints Objective Vitals Vital Signs Date Time Temp Pulse Resp B/P (MAP) Pulse Ox O2 Delivery O2 Flow Rate FiO2 07/12/24 04:22 82 139/85 Medications Current Medications Medications (Trade) Dose Ordered Sig/Lilly Route PRN Reason Start Time Stop Time Status Last Admin Benzocaine (Dermoplast) 1 applic PRN PRN TOP PERINEAL AREA DISCOMFORT 07/11/24 13:45 07/11/24 19:09 Hydralazine HCl (Apresoline Injection) 5 mg Q20MP PRN IV SBP>160 or DBP>105 07/11/24 18:00 Labetalol HCl (Normodyne Tablet) 200 mg Q12H PO 07/12/24 03:30 07/12/24 03:15 Lactated Ringer's 1,000 ml @ 75 mls/hr [id number] IV 07/12/24 06:15 Lactated Ringer's 1,000 ml @ 125 mls/hr Q8H IV 07/11/24 13:45 07/12/24 02:46 Lidocaine HCl (Xylocaine) 20 ml ONCE PRN IJ PERINEAL AREA DISCOMFORT 07/11/24 13:45 Magnesium Sulfate 1,000 ml @ 50 mls/hr Q20H IV 07/12/24 06:15 Nalbuphine HCl (Nubain) 10 mg Q4HP PRN IV MODERATE PAIN (4-6 PAIN SCALE) 07/11/24 13:45 Ondansetron HCl (Zofran) 4 mg Q4HPRN PRN IV NAUSEA / VOMITING 07/11/24 16:45 07/12/24 06:59 Oxytocin 1,000 ml @ 6 ml/hr Q24H IV 07/11/24 15:45 07/11/24 16:56 Penicillin G Potassium 2863075 units/Dextrose 50 ml @ 100 mls/hr Q4H IV 07/11/24 19:00 07/12/24 07:00 Sodium Lauryl Sulfate (Phisoderm) 240 ml PRN PRN TOP PERINEAL AREA DISCOMFORT 07/11/24 13:45 07/11/24 19:09 Witch Dawn (Tucks) 1 pad PRN PRN TOP PERINEAL AREA DISCOMFORT 07/11/24 13:45 07/11/24 19:09 Others ve-7-8/90/0 Studies Laboratory Tests 07/11/24 12:06 Test 07/11/24 12:06 Range/Units Serum Glucose 107 H 74-106 mg/dL Ass/Plan Assessment active labor Plan cont with pitocin Visit Coding OBGYN Date of Service: Jul 12, 2024 Billing Provider: CLAUDIO PARRISH DO INSTALL AND REPAIR TECHNICIAN Common Visit Codes: [id number] INP/OBS CARE(HIGH) INSTALL AND REPAIR TECHNICIAN Procedure Codes: 33216-01- NON-STRESS TEST CLAUDIO PARRISH DO Jul 12, 2024 08:25
[2024-07-12] MEDS: MAGNESIUM SULFATE 40MG/ML 1,000 ML IV SCH (08:30)
[2024-07-12] MEDS: CARBOPROST TROMETHAMINE 250 MCG/1ML VIAL IM ONE ×2 (10:26→12:20)
[2024-07-12] MEDS: CARBOPROST TROMETHAMINE 250 MCG/1ML VIAL IM PRN (11:38)
--- NOTE | 2024-07-12 11:41 | LDN2 ---
Labor and Delivery Note Date 07/12/24 Age 23 1 Para 1 EDC 3-23 EGA 38wks Diagnosis labor,pih,gbs pos Vaginal Delivery: VTX Vacuum Assisted: Yes Placenta: Spontaneous Sex: Male Nuchal Cord Transected: No Amniotic Fluid: Thick (af clear however thick mec behind the baby) Anesthesia epidural,xylocaine Episiotomy: Yes Extension: Yes (midline epis with 2nd deg perineal lac) Repaired with 2-0 chromic EBL 500ml Labs Blood Bank 07/11/24 12:06: Blood Type A NEGATIVE Complications none Conditions stable Comments/Significant Med Maribel spec exam no cxal lac,vaccum and epis applied due to poor pushing effort .prior to this pt was fully consented thick mec noted behind the baby .cord blood gases taken ,vaccum applied once and delivery was expedited. at the time of rom fld was clear. Visit Coding OBGYN Date of Service: Jul 12, 2024 Billing Provider: CLAUDIO PARRIHS DO HEEL SEAT FILLER Common Visit Codes: [id number] SAME DATE (HIGH) HEEL SEAT FILLER Procedure Codes: [id number] DELIVERY ONLY CLAUDIO PARRISH DO Jul 12, 2024 11:40
[2024-07-12] MEDS: LACT. RINGERS/OXYTOCIN 20UNITS 500 ML IV ONE ×2 (12:17→12:18)
[2024-07-12] MEDS: DIPHENOXYLATE W/ATROPINE 2.5 MG TAB ONE ×2 (12:21)
[2024-07-12] MEDS: hydrALAZINE HCL 20 MG/ML VL IV PRN (12:22)
[2024-07-12 15:00] VITALS: BP 122/79; PULSE 91; RESP 18; TEMP 98.4
[2024-07-12] MEDS ORDERED: IBUPROFEN 600 MG TAB PO PRN (15:00)
[2024-07-12] MEDS: HYDROcodone-ACET 5/325MG TAB PO PRN (15:20)
[2024-07-12 18:35] VITALS: BP 113/68; PULSE 81; RESP 16; TEMP 98.4; O2SAT 96
[2024-07-12] MEDS ORDERED: miSOPROStol 100 mcg TAB PO ONE (18:53)
[2024-07-12] MEDS ORDERED: DOCUSATE SOD 100 MG CAP PO SCH (22:00)
[2024-07-12] MEDS ORDERED: DIPHENOXYLATE W/ATROPINE 2.5 MG TAB PO SCH (22:00)
[2024-07-12] MEDS: RHO (D) IMMUNE GLOBULIN 300 MCG INJ IM ONE (23:33)
[2024-07-12 23:36] VITALS: BP 109/62; PULSE 93; RESP 16; TEMP 98.4
[2024-07-13] MEDS: LABETALOL HCL 200 MG TAB PO SCH (00:19)
[2024-07-13 02:41] VITALS: BP 106/55; PULSE 88; RESP 16; TEMP 98.3; O2SAT 96
--- NOTE | 2024-07-13 03:07 | DVHPN2 ---
Progress Note Date Seen: Jul 13, 2024 Subjective S: Lochia minimal Tolerating regular diet well. Ambulating and voiding well w/o feeling lightheaded or dizzy. Passing flatus, had diarrhea side effect of medication, same has since stopped. transferred to [facility] for higher level of care Contraceptive plan: undecided vital signs Vital Sign Date Time Temp Pulse Resp B/P (MAP) Pulse Ox O2 Delivery O2 Flow Rate FiO2 07/13/24 02:41 98.3 88 16 106/55 (72) 96 98.3 07/12/24 18:30 Room Air Total Intake and Output 07/12/24 07/12/24 07/13/24 15:00 23:00 07:00 Output Total 700 ml 600 ml Balance -700 ml -600 ml medications Current Medications Medications Dose Ordered Sig/Lilly Route Start Time Stop Time Status Last Admin Dose Admin Gilmer Seymour 1 pad PRN PRN TOP 07/11/24 13:45 07/11/24 19:09 1 PAD Sodium Lauryl Sulfate 240 ml PRN PRN TOP 07/11/24 13:45 07/11/24 19:09 240 ML Benzocaine 1 applic PRN PRN TOP 07/11/24 13:45 07/11/24 19:09 1 APPLIC Ondansetron HCl 4 mg Q4HPRN PRN IV 07/11/24 16:45 07/12/24 06:59 4 MG Hydralazine HCl 5 mg Q20MP PRN IV 07/11/24 18:00 07/12/24 12:22 5 MG Ibuprofen 600 mg Q6HP PRN PO 07/12/24 15:00 Hold Acetaminophen/ Hydrocodone Bitart 2 tab Q6HPRN PRN PO 07/12/24 15:00 07/12/24 23:31 2 TAB Labetalol HCl 200 mg Q12H PO 07/13/24 00:30 07/13/24 00:19 200 MG laboratory and microbiology Laboratory Tests 07/11/24 12:06 Test 07/11/24 12:06 Range/Units Serum Glucose 107 H 74-106 mg/dL Objective A&O x3 NAD. Afebrile, VSS Chest: heart and lung sounds normal. Breasts: Nipples intact w/o cracks or soreness Abdomen: normal BS, soft, non-tender, no rebound or guarding, fundus firm @ U- 1, lochia minimal Perineum:- no edema, or erythema, Incision & laceration site with sutures intact, edges in good approximation. Extremities: no edema or tenderness Lochia - minimal Assessment/Plan 23yo now pp1_ s/p VAVD doing well. Blood Type: A Rh: Negative Rubella: Immune Pain control with oral medications Bowel regimen: Increase fluid intake and fiber in diet, Laxative PRN Supportive care Plan discussed with: Patient, Other (family) Visit Coding OBGYN Date of Service: Jul 13, 2024 Billing Provider: DRU CORLEY CNM TRACK [employer]TER Common Visit Codes: [id number] INP/OBS CARE(HIGH) DRU CORLEY CNM Jul 13, 2024 03:07
[2024-07-13] MEDS ORDERED: LABETALOL HCL 200 MG TAB PO SCH (03:30)
[2024-07-13 07:00] VITALS: BP 103/55; PULSE 85; RESP 16; TEMP 98.6; O2SAT 96
[2024-07-13] MEDS ORDERED: IBU600T PO (07:46)
--- NOTE | 2024-07-13 07:49 | DVHDS2 ---
Discharge Summary Date of Admission Jul 11, 2024 at 13:13 Date of Discharge: Jul 13, 2024 Admitting Diagnosis Term in early labor Gestational vs Chronic HTN Labs/Diagnostic Data: Laboratory Results Test 07/11/24 13:56 07/11/24 12:06 07/11/24 10:00 07/11/24 09:15 Treponema pallidum Antibody Non-reactive (Negative) Hepatitis C Antibody Negative (Negative) White Blood Count 6.9 10^3/uL (4.4-10.8) Red Blood Count 3.91 10^6/uL (4.0-5.20) Hemoglobin 12.6 g/dL (12.2-16.2) Hematocrit 36.0 % (36.0-46.0) Mean Corpuscular Volume 92.2 fL (80.0-100.0) Mean Corpuscular Hemoglobin 32.4 pg (28.0-32.0) Mean Corpuscular Hemoglobin Concent 35.1 g/dL (32.0-36.0) Red Cell Distribution Width 13.9 % (11.8-14.3) Platelet Count 114 10^3/uL (140-450) Mean Platelet Volume 9.9 fL (6.9-10.8) Neutrophils (%) (Auto) 61.3 % (37.0-80.0) Lymphocytes (%) (Auto) 30.0 % (10.0-50.0) Monocytes (%) (Auto) 6.3 % (0.0-12.0) Eosinophils (%) (Auto) 2.1 % (0.0-7.0) Basophils (%) (Auto) 0.3 % (0.0-2.0) Neutrophils # (Auto) 4.2 10 ^3/uL (1.6-8.6) Lymphocytes # (Auto) 2.1 10 ^3/uL (0.4-5.4) Monocytes # (Auto) 0.4 10 ^3/uL (0-1.3) Eosinophils # (Auto) 0.1 10 ^3/uL (0-0.8) Basophils # (Auto) 0 10 ^3/uL (0-0.2) Nucleated Red Blood Cells 0.1 % Prothrombin Time 9.7 sec (9.3-11.8) Prothrombin Time INR 0.91 (0.9-1.15) Activated Partial Thromboplast Time 25.4 SEC (24.5-34.5) Sodium Level 140 mmol/L (136-145) Potassium Level 3.7 mmol/L (3.5-5.1) Chloride Level 109 mmol/L (98-107) Carbon Dioxide Level 21 mmol/L (20-31) Anion Gap 10 (5-15) Blood Urea Nitrogen 7 mg/dL (9-23) Creatinine 0.68 mg/dL (0.550-1.02) Glomerular Filtration Rate Calc 125 mL/min (>90) BUN/Creatinine Ratio 10.3 (10.0-20.0) Serum Glucose 107 mg/dL (74-106) Uric Acid 6.8 mg/dL (3.1-7.8) Calcium Level 10.4 mg/dL (8.7-10.4) Total Bilirubin 0.5 mg/dL (0.2-1.0) Aspartate Amino Transferase (AST) 25 U/L (13-40) Alanine Aminotransferase (ALT) 33 U/L (7-40) Alkaline Phosphatase 256 U/L (46-116) Total Protein 6.4 g/dL (5.7-8.2) Albumin 3.9 g/dL (3.2-4.8) Amniotic Fluid Ferning Test Negative Placental Autnu-3-Xticzodzkkwkh Negative Urine Color Light-yellow (Yellow) Urine Clarity Turbid (Clear) Urine pH 5.5 (5.0-9.0) Urine Specific [place] 1.007 (1.001-1.035) Urine Protein Negative (Negative) Urine Ketones Negative (Negative) Urine Blood 1+ /uL (Negative) Urine Nitrite Negative (Negative) Urine Bilirubin Negative (Negative) Urine Urobilinogen Normal mg/dL (Negative) Urine Leukocyte Esterase 3+ /uL (Negative) Urine RBC 8 /hpf (0 - 4) Urine Microscopic WBC 14 /HPF (0-5) Urine Squamous Epithelial Cells Mod /hpf (<5) Urine Bacteria None seen /hpf (None Seen) Urine Mucus Few (None Seen) Urine Creatinine 48.30 mg/dL (30.0-125.0) Urine Protein/Creatinine Ratio 0.12 Urine Glucose Normal mg/dL (Normal) Urine Total Protein < 6.0 mg/dL (1-14) Urine Opiates Screen Neg (NEGATIVE) Urine Fentanyl Screen Neg (NEGATIVE) Urine Barbiturates Screen Neg (NEGATIVE) Urine Phencyclidine Screen Neg (NEGATIVE) Urine Amphetamines Screen Neg (NEGATIVE) Urine Benzodiazepines Screen Neg (NEGATIVE) Urine Cocaine Screen Neg (NEGATIVE) Urine Cannabinoids Screen Neg (NEGATIVE) Test 07/11/24 08:30 Urine Total Protein 24 Hour 229.5 mg/24 Hr (<149.1) Other Laboratory Tests 07/11/24 12:06 Brief Hx & Hospital Course: Admitted for labor and delivery No symptoms of severe HTN but Magnesium sulfate given during labor then discontinued BP's have been normal since delivery Hx of HTN on home meds, Labetalol during PIH labs and 24h urine prot negative for acute pre-eclampsia Doing well. Labs and VS stable Condition at Discharge: Stable Final Diagnosis/Problems List Term , delivered Gestational HTN vs Chronic essential HTN Discharge Disposition: Home Discharge Instruct/Medications Diet: Regular Activity: Light activity Activity comment: Pelvic rest Follow Up/Referral: Dr Johnson in 1 week for BP check Medications: No new meds Discharge Statement: "Patient was advised to return to the ER or call 911 if any headaches, dizziness, shortness of breath, chest pain, abdominal pain, bleeding, fevers, or worsening of medical condition. Patient was counseled about treatment plan, medications, possible side effects, patientverbalized understanding. All questions were answered to the best of my ability. This discharge took greater then 30 minutes in planning, reviewing documentation, counseling the patient, and discussing with other team members." ASSESSMENT ASSESSMENT Assessment Term , delivered Gestational HTN vs Chronic essential HTN Visit Coding OBGYN Date of Service: Jul 13, 2024 Billing Provider: ALBIN SPRAGUE DO LIBRARY ASSOCIATE Common Visit Codes: [id number]/OBS DISCH DAY >30MIN [employer]ARY ASSOCIATE Procedure Codes: [id number] OB CARE,VAG DELIVERY ALBIN SPRAGUE DO Jul 13, 2024 07:49
== END 2024-07-13 10:10 | disposition home or self-care (01) | DRG 560 ==
LOC: LDRP 09:12 → OBSVTOIN 13:13 → LDRP 13:27
PROVIDERS: ADMIT Obstetrics & Gynecology; ATTEND Obstetrics & Gynecology
PROC: 10D07Z6 Extraction of Products of Conception, Vacuum, Via Natural or Artificial Opening (ICD-10-PCS; principal; 2024-07-12)
PROC: 0W8NXZZ Division of Female Perineum, External Approach (ICD-10-PCS; 2024-07-12)
PROC: 0KQM0ZZ Repair Perineum Muscle, Open Approach (ICD-10-PCS; 2024-07-12)
PROC: 3E0R3BZ Introduction of Anesthetic Agent into Spinal Canal, Percutaneous Approach (ICD-10-PCS; 2024-07-12)
PROC: 00HU33Z Insertion of Infusion Device into Spinal Canal, Percutaneous Approach (ICD-10-PCS; 2024-07-12)
PROC: 3E0234Z Introduction of Serum, Toxoid and Vaccine into Muscle, Percutaneous Approach (ICD-10-PCS; 2024-07-12)
DX: O11.4 Pre-existing hypertension with pre-eclampsia, complicating childbirth (principal); Z37.0 Single live birth; O99.12 Other diseases of the blood and blood-forming organs and certain disorders involving the immune mechanism complicating childbirth; O26.893 Other specified pregnancy related conditions, third trimester; O70.1 Second degree perineal laceration during delivery; O99.824 Streptococcus B carrier state complicating childbirth; O77.0 Labor and delivery complicated by meconium in amniotic fluid; Z3A.38 38 weeks gestation of pregnancy; Z67.11 Type A blood, Rh negative
CPT/HCPCS: 36415; 59409; 76819; 80053; 80307; 81001; 81002; 82570; 84112; 84156; 84550; 85025; 85610; 85730; 86780; 86803; 86850; 86900; 86901; 90384; 94760; 96360; 96361; 96365; 96366; 96372; G0378; J2405; J2540; J2590; J7060